=== PATIENT | male | born 1965 | race Caucasian/White ===

== ENCOUNTER → 2017-11-30 | Outpatient (CLI) | payer OTHER ==
[~2017-11-30] MED LIST: BACTRIM DS TAB1 EACH PO; BP MEDS; CELEBREX 200 M200 M1 PO; CEPHALEXIN 500500 M3 PO; COREG25 MG PO; GLUCOPHAGE XR500 MG PO; GOUT; LANTUS100 UNIT/M SUBQ; LASIX 40 MG TAB40 M2 PO; LOPRESSOR50 PO; LOVASTATIN 20 M20 MG PO; VALSARTAN-HCTZ1 EAC1 PO
[2017-11-30 07:54] LABS: POTASSIUM 4.6 mmol/L (3.5-5.1)
== END ==
LOC: M.LAB 07:34
PROVIDERS: Anesthesiology
DX: Z01.818 Encounter for other preprocedural examination (principal); E11.9 Type 2 diabetes mellitus without complications

== ENCOUNTER 2018-06-10 13:23 | Emergency (ER) | payer OTHER ==
[~2018-06-10] VITALS: Ht 182.9 cm; Wt 114.3 kg
[~2018-06-10 13:23] MED LIST changes: -BP MEDS; -COREG25 MG PO; -GOUT; -LOVASTATIN 20 M20 MG PO
[2018-06-10] MEDS ORDERED: COREG25 MG PO (13:44)
[2018-06-10] MEDS ORDERED: LOVASTATIN 20 M20 MG PO (13:45)
[2018-06-10] MEDS ORDERED: BP MEDS (13:46)
[2018-06-10] MEDS ORDERED: GOUT (13:46)
[2018-06-10 14:00] LABS: ABSOLUTE BASOPHILS 0.1 thou/uL (0.0-0.2); ABSOLUTE EOSINOPHILS 0.1 thou/uL (0.0-0.7); ABSOLUTE LYMPHOCYTES 0.9 thou/uL (0.8-5.3); ABSOLUTE MONOCYTES 0.4 thou/uL (0.0-1.2); ABSOLUTE NEUTROPHILS 3.9 thou/uL (1.6-8.1); EOSINOPHILS 2.3 %; HEMATOCRIT 26.3 % (42.0-52.0); HEMOGLOBIN 9.1 gm/dL (14.0-18.0); LYMPHOCYTES 17.1 %; MCH 29.9 pg (26.0-34.0); MCHC 34.5 g/dL (28.0-37.0); MCV 86.6 fL (80.0-100.0); MONOCYTES 6.7 %; MPV 6.9 fl. (7.2-11.1); NUCLEATED RBCS 0 /100WBC; PLATELET COUNT* 205 thou/uL (150-400); POLYS 72.9 %; RBC 3.04 mil/uL (4.50-6.00); RDW-CV 13.4 % (10.5-14.5); WBC 5.3 thou/uL (4.0-11.0)
[2018-06-10 14:11] LABS: APTT 27.1 Seconds (25.0-31.3); INR 1.1; PROTIME 10.3 Seconds (9.20-11.50)
[2018-06-10 14:19] LABS: ANION GAP 6 mmol/L (7-16); BUN 46 mg/dL (7-18); CALCIUM 8.5 mg/dL (8.5-10.1); CHLORIDE 106 mmol/L (98-107); CO2 28 mmol/L (21-32); CREATININE 2.7 mg/dL (0.6-1.3); GLUCOSE 153 mg/dL (70-99); POTASSIUM 4.1 mmol/L (3.5-5.1); SODIUM 140 mmol/L (136-145)
[2018-06-10 14:29] LABS: ALBUMIN 2.9 g/dL (3.4-5.0); ALKALINE PHOSPHATASE 58 U/L (46-116); NT-PRO BRAIN NAT PEPTIDE 220 pg/mL (<300); SGOT 25 U/L (15-37); SGPT 27 U/L (30-65); TOTAL BILIRUBIN 0.3 mg/dL (<0.1-1.0); TOTAL PROTEIN 6.3 g/dL (6.4-8.2); TROPONIN-I LEVEL <0.06 ng/mL (<0.06)
[2018-06-10 14:48] VITALS: BP 148/72
--- NOTE | 2018-06-12 11:35 | EKG ---
[place] [address] ELECTROCARDIOGRAM REPORT Name: OSCAR MUNGUIA JR [id number] Admission: 06/10/18 Attend Phys: Discharge: 06/10/18 Date of : 61 Report #: [id number] THIS REPORT FOR: //name// [facility] ED Test Date: 2018-06-10 Test Time: 13:29:23 Pat Name: OSCAR MUNGUIA Department: Room: Gender: M [employer]: [place] ROCHA : 1965 Requested By: Mulugeta Remy Order Number: [id number] MD: Arley Valenzuela Measurements Intervals [place] Rate: 77 P: 72 IN: 156 QRS: 38 QRSD: 84 T: 14 QT: 387 QTc: 438 Interpretive Statements Sinus rhythm Atrial premature complex Compared to ECG 08/29/2016 23:34:37 ST (T wave) deviation no longer present Electronically Signed On 06-12-2018 11:35:00 CDT by Arley Valenzuela [email or web address] <ELECTRONICALLY SIGNED> By: Arley Valenzuela MD, [facility] 06/12/18 1135 1329 132 Arley Valenzuela MD, FACC /EPI
== END 2018-06-10 14:49 | disposition home or self-care (01) ==
LOC: M.ERS 13:23
PROVIDERS: Family Medicine
DX: R55 Syncope and collapse (principal); I10 Essential (primary) hypertension; E11.40 Type 2 diabetes mellitus with diabetic neuropathy, unspecified; Z79.4 Long term (current) use of insulin; Z88.1 Allergy status to other antibiotic agents; Z88.2 Allergy status to sulfonamides